=== PATIENT | female | born 1960 | race Caucasian/White ===

== ENCOUNTER 2017-05-30 00:50 | Emergency (ER) | payer OTHER | END 2017-05-30 03:55 | disposition home or self-care (01) | LOC: M ED 00:50 | DX: S00.83XA Contusion of other part of head, initial encounter (principal); S43.51XA Sprain of right acromioclavicular joint, initial encounter; W00.9XXA Unspecified fall due to ice and snow, initial encounter; Y92.410 Unspecified street and highway as the place of occurrence of the external cause; F17.200 Nicotine dependence, unspecified, uncomplicated | CPT/HCPCS: 73030 ==

== ENCOUNTER 2017-06-05 14:55 | Emergency (ER) | payer OTHER ==
[2017-06-05] MEDS: NS 1,000 ML IV (15:37)
[2017-06-05 15:49] LABS: BASO # 0.1 10^3/uL (0.0-0.2); BASO % 0.5 % (0.0-1.0); EOS # 0.1 10^3/uL (0.0-0.50); EOS % 1.4 % (0.0-3.0); HEMATOCRIT 41.3 % (36.0-47.0); HEMOGLOBIN 13.9 g/dl (12.0-16.0); IMMATURE GRANULOCYTE % 0.5 % (0-3.0); LYMPH # 1.9 10^3/uL (1.5-4.5); LYMPH % 18.8 % (24.0-44.0); MEAN CORPUSCULAR HEMOGLOBIN 31.8 pg (27.0-33.0); MEAN CORPUSCULAR HGB CONC 33.7 g/dl (32.0-36.5); MEAN CORPUSCULAR VOLUME 94.5 fl (80.0-96.0); MONO # 0.9 10^3/uL (0.0-0.8); MONO % 8.6 % (0.0-5.0); NEUTROPHILS # 7.1 10^3/uL (1.8-7.7); NEUTROPHILS % 70.2 % (36.0-66.0); PLATELET COUNT, AUTOMATED 262 10^3/uL (150-450); RED BLOOD COUNT 4.37 10^6/uL (4.00-5.40); RED CELL DISTRIBUTION WIDTH 11.9 % (11.5-14.5); WHITE BLOOD COUNT 10.1 10^3/uL (4.0-10.0)
[2017-06-05 16:08] LABS: ANION GAP 9 MEQ/L (8-16); BLOOD UREA NITROGEN 15 MG/DL (7-18); CALCIUM LEVEL 8.2 MG/DL (8.5-10.1); CARBON DIOXIDE LEVEL 24 MEQ/L (21-32); CHLORIDE LEVEL 108 MEQ/L (98-107); CPK CREATINE PHOSPHOKINASE 65 U/L (26-192); CREATININE FOR GFR 0.92 MG/DL (0.55-1.30); GLOMERULAR FILTRATION RATE > 60.0 (>51); GLUCOSE, FASTING 95 MG/DL (70-100); MAGNESIUM LEVEL 1.6 MG/DL (1.8-2.4); PHOSPHORUS LEVEL 2.9 MG/DL (2.5-4.9); POTASSIUM SERUM 3.4 MEQ/L (3.5-5.1); SODIUM LEVEL 141 MEQ/L (136-145); TROPONIN I < 0.02 NG/ML (< 0.10)
[2017-06-05 16:14] LABS: CK-MB VALUE MASS 1.8 NG/ML (<3.6); MB/CK RELATIVE INDEX 2.76 (< OR =4)
[2017-06-05] MEDS: POTASSIUM CHLORIDE 10 MEQ SR TABLET PO (17:31)
[2017-06-05] MEDS: MAGNESIUM OXIDE 400 MG TAB (MAG-OX) PO (17:31)
== END 2017-06-05 18:05 | disposition home or self-care (01) ==
LOC: M ED 14:55
DX: R55 Syncope and collapse (principal); R94.31 Abnormal electrocardiogram [ECG] [EKG]; I10 Essential (primary) hypertension; E78.9 Disorder of lipoprotein metabolism, unspecified; Z98.0 Intestinal bypass and anastomosis status; Z88.8 Allergy status to other drugs, medicaments and biological substances; Z79.899 Other long term (current) drug therapy
CPT/HCPCS: 71046

== ENCOUNTER 2018-02-20 12:56 | Inpatient (IN) | payer OTHER ==
[2018-02-20 13:52] LABS: HEMATOCRIT 38.8 % (36.0-47.0); HEMOGLOBIN 13.4 g/dl (12.0-15.5); MEAN CORPUSCULAR HEMOGLOBIN 31.8 pg (27.0-33.0); MEAN CORPUSCULAR HGB CONC 34.5 g/dl (32.0-36.5); MEAN CORPUSCULAR VOLUME 92.2 fl (80.0-96.0); PLATELET COUNT, AUTOMATED 296 10^3/uL (150-450); RED BLOOD COUNT 4.21 10^6/uL (4.00-5.40); RED CELL DISTRIBUTION WIDTH 12.3 % (11.5-14.5); WHITE BLOOD COUNT 6.6 10^3/uL (4.0-10.0)
[2018-02-20 14:10] LABS: AMPHETAMINES LEVEL URINE NEGATIVE (NEGATIVE); BARBITURATES URINE NEGATIVE (NEGATIVE); BENZODIAZEPINES URINE NEGATIVE (NEGATIVE); CANNABINOIDS URINE NEGATIVE (NEGATIVE); COCAINE METABOLITE URINE NEGATIVE (NEGATIVE); METHADONE URINE NEGATIVE (NEGATIVE); OPIATES URINE NEGATIVE (NEGATIVE); PHENCYCLIDINE URINE NEGATIVE (NEGATIVE)
[2018-02-20 14:23] LABS: ACETAMINOPHEN LEVEL < 2.0 UG/ML (10.0-30.0); ALBUMIN 3.7 GM/DL (3.2-5.2); ALKALINE PHOSPHATASE 73 U/L (45-117); ALT/SGPT 29 U/L (12-78); ANION GAP 9 MEQ/L (8-16); AST/SGOT 27 U/L (7-37); BILIRUBIN,DIRECT < 0.1 MG/DL (0.0-0.2); BILIRUBIN,TOTAL 0.3 MG/DL (0.2-1.0); BLOOD UREA NITROGEN 10 MG/DL (7-18); CALCIUM LEVEL 8.9 MG/DL (8.5-10.1); CARBON DIOXIDE LEVEL 26 MEQ/L (21-32); CHLORIDE LEVEL 103 MEQ/L (98-107); CREATININE FOR GFR 0.71 MG/DL (0.55-1.30); ETHYL ALCOHOL (ETHANOL) 0.078 % (0.000-0.010); GLOMERULAR FILTRATION RATE > 60.0 (>51); GLUCOSE, FASTING 101 MG/DL (70-100); SALICYLATE LEVEL < 1.7 MG/DL (5.0-30.0); SODIUM LEVEL 138 MEQ/L (136-145); TOTAL PROTEIN 7.4 GM/DL (6.4-8.2)
[2018-02-20] MEDS ORDERED: buPROPion 75 MG TAB PO (20:00)
[2018-02-20] MEDS: buPROPion **XL** TABLET 150MG (WELLBUTRIN XL) PO (20:32)
[2018-02-20] MEDS: LISINOPRIL 10 MG TAB PO (20:32)
[2018-02-20] MEDS: OMEPRAZOLE 20 MG CAP PO (20:32)
[2018-02-20] MEDS: ESCITALOPRAM OXALATE 10 MG TAB (LEXAPRO) PO (20:32)
[2018-02-20] MEDS: ACETAMINOPHEN TAB 650MG DOSE (2X325MG) PO (23:09)
[2018-02-21] MEDS: hydroCHLOROthiazide 12.5 MG CAPSULE PO (11:05)
[2018-02-21] MEDS ORDERED: ALBUTEROL 90 MCG/ACT 8GM HFA INHALER INH (15:15)
[2018-02-21] MEDS: OMEPRAZOLE 20 MG CAP PO (15:47)
[2018-02-21] MEDS: buPROPion **XL** TABLET 150MG (WELLBUTRIN XL) PO (15:47)
[2018-02-21] MEDS: ESCITALOPRAM OXALATE 10 MG TAB (LEXAPRO) PO (15:47)
[2018-02-21] MEDS: traZODone 50 MG TAB PO (20:27)
[2018-02-21] MEDS: ACETAMINOPHEN TAB 650MG DOSE (2X325MG) PO (21:20)
[2018-02-22] MEDS: hydroCHLOROthiazide 25 MG TAB PO (08:42)
[2018-02-22] MEDS: OMEPRAZOLE 20 MG CAP PO (08:42)
[2018-02-22] MEDS: ESCITALOPRAM OXALATE 10 MG TAB (LEXAPRO) PO (08:42)
[2018-02-22] MEDS: buPROPion **XL** TABLET 150MG (WELLBUTRIN XL) PO (08:42)
[2018-02-22] MEDS: LISINOPRIL 10 MG TAB PO (08:43)
[2018-02-22] MEDS: traZODone 50 MG TAB PO (21:09)
[2018-02-22] MEDS: IBUPROFEN 600 MG TAB PO (21:10)
[2018-02-23] MEDS: OMEPRAZOLE 20 MG CAP PO (08:31)
[2018-02-23] MEDS: hydroCHLOROthiazide 25 MG TAB PO (08:31)
[2018-02-23] MEDS: LISINOPRIL 10 MG TAB PO (08:31)
[2018-02-23] MEDS: buPROPion **XL** TABLET 150MG (WELLBUTRIN XL) PO (08:31)
[2018-02-23] MEDS: ESCITALOPRAM OXALATE 10 MG TAB (LEXAPRO) PO (08:31)
[2018-02-23] MEDS: INFLUENZA QUADRIVALENT PF VACCINE 0.5ML SYRINGE (90686) IM (08:34)
[2018-02-23] MEDS: traZODone 50 MG TAB PO (22:23)
[2018-02-23] MEDS: IBUPROFEN 600 MG TAB PO (22:25)
[2018-02-24] MEDS: MOM 30ML SUSPENSION UDC PO (08:21)
[2018-02-24] MEDS: ESCITALOPRAM OXALATE 10 MG TAB (LEXAPRO) PO (09:04)
[2018-02-24] MEDS: LISINOPRIL 10 MG TAB PO (09:05)
[2018-02-24] MEDS: hydroCHLOROthiazide 25 MG TAB PO (09:05)
[2018-02-24] MEDS: buPROPion 75 MG TAB PO (09:05)
[2018-02-24] MEDS: OMEPRAZOLE 20 MG CAP PO (09:05)
[2018-02-24] MEDS: MIRTAZAPINE 15 MG TAB PO (21:35)
[2018-02-24] MEDS: IBUPROFEN 600 MG TAB PO (21:37)
[2018-02-25] MEDS: ESCITALOPRAM OXALATE 10 MG TAB (LEXAPRO) PO (09:08)
[2018-02-25] MEDS: buPROPion 75 MG TAB PO (09:08)
[2018-02-25] MEDS: OMEPRAZOLE 20 MG CAP PO (09:09)
[2018-02-25] MEDS: hydroCHLOROthiazide 25 MG TAB PO (09:09)
[2018-02-25] MEDS: LISINOPRIL 10 MG TAB PO (09:09)
[2018-02-25] MEDS: MIRTAZAPINE 15 MG TAB PO (21:59)
[2018-02-25] MEDS: IBUPROFEN 600 MG TAB PO (21:59)
[2018-02-26] MEDS: hydroCHLOROthiazide 25 MG TAB PO (08:23)
[2018-02-26] MEDS: buPROPion 75 MG TAB PO (08:23)
[2018-02-26] MEDS: LISINOPRIL 10 MG TAB PO (08:24)
[2018-02-26] MEDS: OMEPRAZOLE 20 MG CAP PO (08:24)
[2018-02-26] MEDS: ESCITALOPRAM OXALATE 10 MG TAB (LEXAPRO) PO (08:24)
[2018-02-26] MEDS: IBUPROFEN 600 MG TAB PO ×2 (09:46→21:46)
[2018-02-26] MEDS: MIRTAZAPINE 15 MG TAB PO (21:45)
[2018-02-26] MEDS: MAALOX 30 ML SUSP *UDC PO (23:35)
[2018-02-27] MEDS: IBUPROFEN 600 MG TAB PO ×2 (04:18→21:39)
[2018-02-27] MEDS: ESCITALOPRAM OXALATE 10 MG TAB (LEXAPRO) PO (11:44)
[2018-02-27] MEDS: buPROPion 75 MG TAB PO (11:44)
[2018-02-27] MEDS: LISINOPRIL 10 MG TAB PO (11:44)
[2018-02-27] MEDS: hydroCHLOROthiazide 25 MG TAB PO (11:45)
[2018-02-27] MEDS: OMEPRAZOLE 20 MG CAP PO (11:45)
[2018-02-27] MEDS: MIRTAZAPINE 15 MG TAB PO (21:39)
[2018-02-28] MEDS: MAALOX 30 ML SUSP *UDC PO (08:41)
[2018-02-28] MEDS: ESCITALOPRAM OXALATE 10 MG TAB (LEXAPRO) PO (10:02)
[2018-02-28] MEDS: buPROPion 75 MG TAB PO (10:02)
[2018-02-28] MEDS: LISINOPRIL 10 MG TAB PO (10:02)
[2018-02-28] MEDS: OMEPRAZOLE 20 MG CAP PO (10:02)
[2018-02-28] MEDS: hydroCHLOROthiazide 25 MG TAB PO (10:02)
[2018-02-28] MEDS: MIRTAZAPINE 15 MG TAB PO (21:14)
[2018-02-28] MEDS: IBUPROFEN 600 MG TAB PO (21:16)
[2018-03-01] MEDS: IBUPROFEN 600 MG TAB PO ×3 (08:32→21:38)
[2018-03-01] MEDS: LISINOPRIL 10 MG TAB PO (08:32)
[2018-03-01] MEDS: OMEPRAZOLE 20 MG CAP PO (08:33)
[2018-03-01] MEDS: ESCITALOPRAM OXALATE 10 MG TAB (LEXAPRO) PO (08:33)
[2018-03-01] MEDS: hydroCHLOROthiazide 25 MG TAB PO (08:33)
[2018-03-01] MEDS: MIRTAZAPINE 15 MG TAB PO (21:38)
[2018-03-02] MEDS: LISINOPRIL 10 MG TAB PO (08:52)
[2018-03-02] MEDS: hydroCHLOROthiazide 25 MG TAB PO (08:53)
[2018-03-02] MEDS: ESCITALOPRAM OXALATE 10 MG TAB (LEXAPRO) PO (08:53)
[2018-03-02] MEDS: OMEPRAZOLE 20 MG CAP PO (08:53)
[2018-03-02] MEDS: IBUPROFEN 600 MG TAB PO ×3 (08:54→21:20)
[2018-03-02] MEDS: MIRTAZAPINE 15 MG TAB PO (21:19)
[2018-03-03] MEDS: OMEPRAZOLE 20 MG CAP PO (08:54)
[2018-03-03] MEDS: hydroCHLOROthiazide 25 MG TAB PO (08:54)
[2018-03-03] MEDS: LISINOPRIL 10 MG TAB PO (08:55)
[2018-03-03] MEDS: IBUPROFEN 600 MG TAB PO (08:55)
[2018-03-03] MEDS: ESCITALOPRAM OXALATE 10 MG TAB (LEXAPRO) PO (08:55)
== END 2018-03-03 11:35 | disposition home or self-care (01) | DRG 881 ==
LOC: M ED 12:56 → M ED INP 02-21 12:09 → M PSY 02-21 13:55
PROVIDERS: Psychiatry & Neurology Psychiatry
DX: F32.9 Major depressive disorder, single episode, unspecified (principal); R45.851 Suicidal ideations; F10.10 Alcohol abuse, uncomplicated; F41.9 Anxiety disorder, unspecified; K21.9 Gastro-esophageal reflux disease without esophagitis; E66.9 Obesity, unspecified; J45.909 Unspecified asthma, uncomplicated; I10 Essential (primary) hypertension; Z68.37 Body mass index [BMI] 37.0-37.9, adult; K58.8 Other irritable bowel syndrome; Z79.899 Other long term (current) drug therapy; Z88.8 Allergy status to other drugs, medicaments and biological substances